=== PATIENT | female | born 1985 | race Caucasian/White ===

== ENCOUNTER 2020-02-16 16:45 | Emergency (ER) | payer OTHER ==
[~2020-02-16] VITALS: Ht 160 cm; Wt 68.0 kg
[2020-02-16] MEDS ORDERED: IBUPROFEN 800800 M1 PO (17:56)
[2020-02-16] MEDS ORDERED: NORCO 5-325 TA1 EAC2 PO (17:56)
[2020-02-16 18:42] VITALS: BP 150/90
== END 2020-02-16 18:42 | disposition home or self-care (01) ==
LOC: M.ERS 16:45
DX: S92.002A Unspecified fracture of left calcaneus, initial encounter for closed fracture (principal); W10.8XXA Fall (on) (from) other stairs and steps, initial encounter; Y93.89 Activity, other specified; Y92.89 Other specified places as the place of occurrence of the external cause; Y99.8 Other external cause status